=== PATIENT | female | born 1950 | race Caucasian/White ===

== ENCOUNTER 2017-07-01 10:47 | Emergency (ER) | payer MEDICARE, OTHER ==
--- NOTE | 2017-07-01 11:17 | ERPHSYRPT ---
- History of Present Illness Time Seen by Provider: 07/01/17 11:14 Source: patient Exam Limitations: no limitations Physician History: mild to mod constant ache pain positional left knee, struck on a chair by accident, no bleeding, no other injury, pt refused pain med Method of Injury: direct blow Occurred: yesterday Quality: constant, aching Severity of Pain-Max: moderate Severity of Pain-Current: moderate Allergies/Adverse Reactions: No Known Drug Allergies Allergy (Unverified 07/01/17 11:21) - Review of Systems Constitutional: No Symptoms Musculoskeletal: Fall, Other (rom limited by pain, sen and pulses intact, + tender anterior left knee, nontender ankle and hip), No Back Pain, No Neck Pain , No Deformity Skin: No Symptoms Neurological: No Symptoms - Past Medical History Pertinent Past Medical History: Yes - Nursing Vital Signs Nursing Vital Signs: Initial Vital Signs Temperature 98.2 F 07/01/17 10:48 Pulse Rate 85 07/01/17 10:48 Respiratory Rate 18 07/01/17 10:48 Blood Pressure 150/86 07/01/17 10:48 O2 Sat by Pulse Oximetry 100 07/01/17 10:48 Pain Scale Pain Intensity 4 - Physical Exam General Appearance: no apparent distress Mental Status Exam: alert, oriented x 3 Skin Exam: warm, dry, other (tender anterior left knee, rom limited by pain, sen and pulses intact, nontender hip and ankle) - Radiology Exams Knee X-ray Interpretation: Discussed w/ radiologist, Other (medial left tibial plateau fx) Ordered Tests: Active Orders 24 hr Category Date Time Status Immobilizer STAT Care 07/01/17 11:56 Active KNEE (3 VIEWS) Stat Exams 07/01/17 Taken - Progress Progress: improved Progress Note: 07/01/17 12:14 knee immobilizer, crutches, motrin ice elevation nonweight bearing, pt refused norco Discussed with : Other (see Dr Heredia at [facility] [phone] Sunday as d/w him) Will see patient in: office Counseled pt/family regarding: diagnosis, need for follow-up, rad results - Departure Time of Disposition: 12:15 Departure Disposition: Home Clinical Impression: Knee fracture, left Condition: Stable Critical Care Time: No Additional Instructions: motrin ice and elevation see Dr Heredia at [facility] [phone] return if worse nonweight bearing
[2017-07-01 12:30] VITALS: BP 142/56; PULSE 88; O2SAT 97
--- NOTE | 2017-07-01 22:03 | XRAY ---
Indication: Pain following fall. Comparison: None 3 views of the left knee demonstrates osteopenia with small nondisplaced medial tibial plateau acute fracture and suprapatellar effusion. No other bony, articular, or soft tissue abnormalities. Comment: Preliminary interpretation was made by [facility]. No discrepancy.
== END 2017-07-01 12:35 | disposition home or self-care (01) ==
LOC: ED 10:47
DX: S82.002A Unspecified fracture of left patella, initial encounter for closed fracture (principal); W22.03XA Walked into furniture, initial encounter
CPT/HCPCS: 73562; 99284; L1830